=== PATIENT | male | born 1965 | race Caucasian/White ===

== ENCOUNTER 2016-12-29 19:36 | Emergency (ER) | payer OTHER ==
[~2016-12-29] VITALS: Ht 172.7 cm; Wt 89.5 kg
[~2016-12-29 19:36] MED LIST: ADVAI500I PO; ALBU8I INH; HYDR-2768 PO; HYDR-3516 PO; IBUP-232 PO; LISI-363 PO
[2016-12-29 20:04] VITALS: PULSE 57; RESP 14; TEMP 98.2; O2SAT 99
[2016-12-29] MEDS ORDERED: LISI-515 PO (20:57)
[2016-12-29] MEDS ORDERED: BUPR150T3 PO (20:57)
[2016-12-29] MEDS ORDERED: HYDR25TA5 PO (20:57)
[2016-12-29] MEDS ORDERED: VENTAER INH (20:57)
[2016-12-29] MEDS ORDERED: CLIN1CAP6 PO (21:45)
[2016-12-29] MEDS ORDERED: PRED20 PO (21:45)
--- NOTE | 2016-12-29 21:46 | PD ---
HPI Chief Complaint: Bite or Sting Time Seen by Provider: 20:11 Travel History International Travel<30 days: No Contact w/Intl Traveler<30days: No Traveled to known affect area: No History of Present Illness HPI 51-year-old male percents emergency department for evaluation of pain and swelling of the left upper extremity after wasp sting yesterday. Patient reports he was doing yard work when he was stung by a wasp twice in the left forearm and left hand. He reports in the last 24 hours the areas become increasingly more painful, red and swollen. He reports the area is pruritic and warm. He denies fever or chills. He denies wheezing or shortness of breath. No previous anaphylactic reaction to insect. Patient reports he took one Benadryl yesterday evening with minimal improvement. PFSH Past Medical History Asthma: Yes Heart Rhythm Problems: No Cardiac Catheterization: No Cardiovascular Problems: Yes (htn on meds) High Cholesterol: Yes Congestive Heart Failure: No Diabetes: No Diminished Hearing: No Heparin Induced Thrombocytopen: No Hypertension: Yes Kidney Stones: Yes Respiratory: Yes (asthma) Immunizations Current: Yes Tetanus Vaccination: < 5 Years Influenza Vaccination: No Past Surgical History Appendectomy: Yes Coronary Artery Bypass Graft: No Social History Alcohol Use: Yes (OCC) Tobacco Use: No Substance Use: No Allergies-Medications (Allergen,Severity, Reaction): Coded Allergies: No Known Allergies (Unverified , 02/12/16) Reported Meds & Prescriptions Reported Meds & Active Scripts Active Reported Ventolin Hfa 18 GM Inh (Albuterol Sulfate) 90 Mcg/Act Aer 2 Puff INH Q6H PRN Bupropion HCl ER 24 HR (Bupropion HCl) 150 Mg Tab 100 Mg PO DAILY Hydrochlorothiazide 25 Mg Tab 25 Mg PO DAILY Lisinopril 20 Mg Tab 20 Mg PO DAILY Review of Systems Except as stated in HPI: all other systems reviewed are Neg Physical Exam Narrative GENERAL: Well-nourished, well-developed patient. SKIN: Focused skin assessment warm/dry. HEAD: Normocephalic. EYES: No scleral icterus. No injection or drainage. NECK: Supple, trachea midline. No JVD or lymphadenopathy. CARDIOVASCULAR: Regular rate and rhythm without murmurs, gallops, or rubs. RESPIRATORY: Breath sounds equal bilaterally. No accessory muscle use. No wheezing. GASTROINTESTINAL: Abdomen soft, non-tender, nondistended. MUSCULOSKELETAL: No cyanosis. Left upper extremity: Patient has notable swelling and erythema from the dorsal aspect of the hand extending into the proximal forearm. There are 2 lesions consistent with insect bites. No lymphangitis. No fluctuance, induration. 2+ distal pulses. The extremity is neurovascular intact. Data Data Last Documented VS Vital Signs Date Time Temp Pulse Resp B/P (MAP) Pulse Ox O2 Delivery O2 Flow Rate FiO2 12/29/16 20:04 98.2 57 14 99 [facility] Medical Decision Making Medical Screen Exam Complete: Yes Emergency Medical Condition: Yes Differential Diagnosis Wasp sting versus localized allergic reaction versus cellulitis Narrative Course 51-year-old male with chief complaint of left upper extremity pruritus and swelling after wasp sting yesterday. On exam patient has notable swelling, erythema, warmth starting at dorsal aspect of the hand extending up to the mid to proximal forearm. There are 2 insect bites. One on the dorsal aspect hand and one on the forearm. The area is consistent with localized inflammation/ allergic reaction to insect/wasp venom versus cellulitis. Patient will be treated with steroids, Benadryl, antibiotics with close follow-up. Patient verbalizes understanding and agrees to plan Diagnosis Primary Impression: Wasp sting Qualified Codes: T63.464A - Toxic effect of venom of wasps, undetermined, initial encounter Referrals: Primary Care Physician Additional Instructions: Take the steroids as prescribed. Take the antibiotics as prescribed. Take [id number] Benadryl 25 mg every 6 hours as needed for itching/ swelling. Follow-up with your doctor in 2 days for recheck. Return to the emergency department if he developed new or worsening symptoms. Scripts Clindamycin (Clindamycin) 300 Mg Cap 300 MG PO Q6H for Infection, #28 CAP 0 Refills Prov: Alexa Mullen 12/29/16 Prednisone (Prednisone) 20 Mg Tab 40 MG PO DAILY, #8 TAB 0 Refills Take 40 mg (2 tablets) daily for 5 days Prov: Alexa Mullen 12/29/16 Disposition: 01 DISCHARGE HOME Condition: Stable Alexa Mullen Dec 29, 2016 21:46
[2016-12-29] MEDS ORDERED: predniSONE 20 MG TAB PO ONE (22:00)
== END 2016-12-29 22:04 | disposition home or self-care (01) ==
LOC: PHEFT 19:36
DX: T63.464A Toxic effect of venom of wasps, undetermined, initial encounter (principal); W57.XXXA Bitten or stung by nonvenomous insect and other nonvenomous arthropods, initial encounter
CPT/HCPCS: 99284; J7512

== ENCOUNTER 2017-01-22 19:05 | Emergency (ER) | payer OTHER ==
[~2017-01-22] VITALS: Ht 172.7 cm; Wt 89.0 kg
[~2017-01-22 19:05] MED LIST changes: -ADVAI500I PO; -ALBU8I INH; +BUPR150T3 PO; +CLIN1CAP6 PO; -HYDR-2768 PO; -HYDR-3516 PO; +HYDR25TA5 PO; -IBUP-232 PO; -LISI-363 PO; +LISI-515 PO; +PRED20 PO; +VENTAER INH
[2017-01-22 19:11] VITALS: BP 162/84; PULSE 52; RESP 16; TEMP 97.6; O2SAT 99
--- NOTE | 2017-01-22 19:37 | PD ---
HPI . Dentalgia Chief Complaint: Oral / Dental Pain or Problem Time Seen by Provider: 19:23 Travel History International Travel<30 days: No Contact w/Intl Traveler<30days: No Traveled to known affect area: No History of Present Illness HPI 51-year-old male patient presents emergency department for evaluation of tooth pain that he woke up with this morning. The pain originates where his wisdom teeth on the right lower side where tooth #32 is impacted. There are no signs or symptoms of gingival edema, erythema or infectious process. Patient denies any fevers, chills, chest pain, shortness breath, abdominal pain, nausea, vomiting, diarrhea or lightheadedness. History Social History Alcohol Use: Yes (OCC) Tobacco Use: No Allergies-Medications (Allergen,Severity, Reaction): Coded Allergies: No Known Allergies (Unverified , 01/22/17) Reported Meds & Prescriptions Reported Meds & Active Scripts Active Reported Ventolin Hfa 18 GM Inh (Albuterol Sulfate) 90 Mcg/Act Aer 2 Puff INH Q6H PRN Bupropion HCl ER 24 HR (Bupropion HCl) 150 Mg Tab 100 Mg PO DAILY Hydrochlorothiazide 25 Mg Tab 25 Mg PO DAILY Lisinopril 20 Mg Tab 20 Mg PO DAILY Review of Systems Except as stated in HPI: all other systems reviewed are Neg Physical Exam Narrative GENERAL: Well-nourished, well-developed 51-year-old male patient in no acute distress. Nontoxic appearing. SKIN: Focused skin assessment warm/dry. HEAD: Normocephalic. Atraumatic. EYES: No scleral icterus. No injection or drainage. MOUTH: Mucous membranes moist, no lesions, tongue and gums appear normal. NECK: Supple, trachea midline. No JVD or lymphadenopathy. CARDIOVASCULAR: Regular rate and rhythm without murmurs, gallops, or rubs. RESPIRATORY: Breath sounds equal bilaterally. No accessory muscle use. GASTROINTESTINAL: Abdomen soft, non-tender, nondistended. MUSCULOSKELETAL: No cyanosis, or edema. BACK: Nontender without obvious deformity. No CVA tenderness. Data Data Last Documented VS Vital Signs Date Time Temp Pulse Resp B/P (MAP) Pulse Ox O2 Delivery O2 Flow Rate FiO2 01/22/17 19:11 97.6 52 16 162/84 (110) 99 MDM Medical Screen Exam Complete: Yes Emergency Medical Condition: Yes Differential Diagnosis Dentalgia Narrative Course 51-year-old male presents for evaluation of dentalgia on the right lower side. The patient is well-appearing. His vital signs are stable. There is no signs or symptoms of infectious process. A medical screening exam was performed: At the time of evaluation the presenting medical condition was determined not to be of an emergent nature. The patient was given the option of receiving additional care, but declined. Patient was given options for additional community resources from which to obtain care. The Patient Has Been advised to seek medical attention for their presenting complaint. The patient has been advised to return to the ER at any time if an emergent condition develops. Primary Impression: Encounter for medical screening examination Condition: Stable Citlaly Bashir Jan 22, 2017 19:37
== END 2017-01-22 19:35 | disposition left against medical advice (07) ==
LOC: PHEFT 19:05
DX: K08.89 Other specified disorders of teeth and supporting structures (principal)
CPT/HCPCS: 99281